=== PATIENT | female | born 1965 | race Caucasian/White ===

== ENCOUNTER → 2017-02-22 | Outpatient (CLI) | payer OTHER | END | disposition home or self-care (01) | LOC: CT 10:52 | DX: J32.0 Chronic maxillary sinusitis (principal); H92.02 Otalgia, left ear; M54.2 Cervicalgia; H57.12 Ocular pain, left eye ==

== ENCOUNTER → 2018-03-02 | Outpatient (CLI) | payer OTHER ==
[~2018-03-02] MED LIST: ADDERALL 20 MG20 MG PO; ASPIR LOW81 MG PO; AVPAK PRIMIDONE50 M1 PO; B12,B-12,B 12500 MC1 PO; BIOTIN2500 MCG PO; CYMBALTA60 MG PO; ESTRADIOL2 MG PO; GAVISCON ES TA1 EACH PO; HYDROXYZINE PAM25 M1 PO; INDOMETHACIN50 MG PO; PLAQUENIL200 MG PO; PROTONIX40 MG PO; SUMATRIPTAN SU100 M1 PO; TEMAZEPAM30 MG PO; ZANTAC 150150 MG PO
== END | disposition home or self-care (01) ==
LOC: MAMMO 10:00
DX: Z12.31 Encounter for screening mammogram for malignant neoplasm of breast (principal)

== ENCOUNTER → 2019-02-21 | Outpatient (CLI) | payer OTHER ==
[2019-02-21 09:30] LABS: HEMATOCRIT 43.3 % (37.0-47.0); HEMOGLOBIN 14.1 g/dl (12.0-16.0); MEAN CELL VOLUME 92.3 fl (81.0-99.0); MEAN CORPUSCULAR HGB 30.1 pg (27.0-31.0); MEAN CORPUSCULAR HGB CONC 32.6 g/dl (33.0-37.0); MEAN PLATELET VOLUME 9.2 fl (9.6-12.3); RED BLOOD COUNT 4.69 10*6/uL (4.10-5.10); RED CELL DISTRI WIDTH 12.5 % (0-14.5); WHITE BLOOD COUNT 4.7 10*3/uL (4.8-10.8)
[2019-02-21 10:10] LABS: ALBUMIN 3.7 gm/dl (3.1-4.5); ALKALINE PHOSPHATASE 77 U/L (45-117); BUN 16 mg/dl (7-24); CHLORIDE 102 mmol/L (98-107); CHOLESTEROL 149 mg/dL (<200); CPK 86 U/L (26-192); HDL CHOLESTEROL 67 mg/dl (40-60); LDL CHOLESTEROL 57 mg/dL (9-159); POTASSIUM 4.3 mmol/L (3.5-5.1); SGOT/AST 13 IU/L (3-35); SGPT/ALT 25 U/L (12-78); SODIUM 139 mmol/L (136-145); TOTAL PROTEIN 6.9 gm/dL (6.4-8.2); TRIGLYCERIDES 127 mg/dl (<150); VLDL CHOLESTEROL 25 mg/dL (6-40)
[2019-02-22 06:05] LABS: FOLLICLE STIMULATING HORMONE 25.9 mIU/mL (.); LUTEINIZING HORMONE 004283 27.3 mIU/mL (.)
[2019-02-22 08:08] LABS: HEPATITIS B SURFACE AG Negative (Negative); HEPATITIS C VIRUS ANTIBODY <0.1 s/co (0.0-0.9); RHEUMATOID ARTHRITIS FACTOR <10.0 IU/mL (0.0-13.9)
[2019-02-23 21:08] LABS: TESTOSTERONE FREE, (DIRECT) 3.1 pg/mL (0.0-4.2)
[2019-02-23 22:03] LABS: CCP ANTIBODIES IGG/IGA 4 units (0-19)
== END | disposition home or self-care (01) ==
LOC: LAB 08:57
PROVIDERS: Family Medicine
DX: E55.9 Vitamin D deficiency, unspecified (principal); M79.10 Myalgia, unspecified site; M25.50 Pain in unspecified joint; F90.9 Attention-deficit hyperactivity disorder, unspecified type; F41.9 Anxiety disorder, unspecified; E28.2 Polycystic ovarian syndrome; Z78.0 Asymptomatic menopausal state

== ENCOUNTER → 2020-12-06 | Outpatient (CLI) | payer OTHER ==
[2020-12-06 11:30] LABS: ALBUMIN 3.8 gm/dl (3.1-4.5); BILIRUBIN, DIRECT 0.2 mg/dL (0.0-0.2); CREATININE 1.26 mg/dL (0.55-1.02); FREE T4 0.95 ng/dl (0.76-1.46); POTASSIUM 3.9 mmol/L (3.5-5.1); TOTAL PROTEIN 7.4 gm/dL (6.4-8.2)
[2020-12-06 11:35] LABS: THYROID STIM HORMONE (HS) 5.5 uIU/ml (0.358-4.75)
[2020-12-07 05:06] LABS: THYROID PEROXIDASE (TPO) AB <9 IU/mL (0-34)
== END | disposition home or self-care (01) ==
LOC: LAB 10:20
PROVIDERS: ATTEND Internal Medicine
DX: E03.9 Hypothyroidism, unspecified (principal); E34.9 Endocrine disorder, unspecified; L65.9 Nonscarring hair loss, unspecified; E55.9 Vitamin D deficiency, unspecified; E66.9 Obesity, unspecified

== ENCOUNTER → 2021-03-08 | Outpatient (CLI) | payer OTHER ==
[2021-03-08 11:45] LABS: ALBUMIN 3.7 gm/dl (3.1-4.5); ALKALINE PHOSPHATASE 110 U/L (45-117); BUN 25 mg/dl (7-24); CHLORIDE 109 mmol/L (98-107); CHOLESTEROL 170 mg/dL (<200); CREATININE 1.14 mg/dL (0.55-1.02); LDL CHOLESTEROL 52 mg/dL (9-159); SGOT/AST 12 IU/L (3-35); SGPT/ALT 33 U/L (12-78); SODIUM 140 mmol/L (136-145); TOTAL PROTEIN 6.9 gm/dL (6.4-8.2); TRIGLYCERIDES 370 mg/dl (<150)
[2021-03-08 11:47] LABS: FREE T4 1.08 ng/dl (0.76-1.46)
[2021-03-09 10:06] LABS: THYROID PEROXIDASE (TPO) AB <8 IU/mL (0-34)
[2021-03-10 15:06] LABS: THYROGLOBULIN ANTIBODY <1.0 IU/mL (0.0-0.9)
== END | disposition home or self-care (01) ==
LOC: LAB 11:03
PROVIDERS: ATTEND Internal Medicine
DX: E55.9 Vitamin D deficiency, unspecified (principal); E03.9 Hypothyroidism, unspecified; E34.9 Endocrine disorder, unspecified; Z12.31 Encounter for screening mammogram for malignant neoplasm of breast

== ENCOUNTER → 2021-09-04 | Outpatient (CLI) | payer OTHER | END | disposition home or self-care (01) | LOC: LAB 08:29 | PROVIDERS: ATTEND Internal Medicine | DX: E34.9 Endocrine disorder, unspecified (principal) ==

== ENCOUNTER → 2021-11-04 | Outpatient (CLI) | payer OTHER ==
[2021-11-04 10:18] LABS: BUN 25 mg/dl (7-24); CHLORIDE 110 mmol/L (98-107); CREATININE 1.08 mg/dL (0.55-1.02); FREE T4 1.21 ng/dl (0.76-1.46); POTASSIUM 3.7 mmol/L (3.5-5.1); SODIUM 141 mmol/L (136-145)
[2021-11-05 05:05] LABS: LUTEINIZING HORMONE 49.8 mIU/mL (.); PROGESTERONE 0.7 ng/mL (.)
== END | disposition home or self-care (01) ==
LOC: LAB 08:47
PROVIDERS: ATTEND Internal Medicine
DX: E34.9 Endocrine disorder, unspecified (principal); E04.9 Nontoxic goiter, unspecified; E55.9 Vitamin D deficiency, unspecified; R73.01 Impaired fasting glucose; E03.9 Hypothyroidism, unspecified

== ENCOUNTER → 2022-08-31 | Outpatient (CLI) | payer OTHER ==
[2022-08-31 16:32] LABS: FREE T4 1.8 ng/dl (0.89-1.76); POTASSIUM 4.2 mmol/L (3.4-5.1); THYROID STIM HORMONE (HS) 0.04 uIU/ml (0.550-4.780)
[2022-08-31 16:35] LABS: VITAMIN D, 25-HYDROXY 58.7 ng/mL (30-100)
== END | disposition home or self-care (01) ==
LOC: LAB 15:31
PROVIDERS: ATTEND Internal Medicine
DX: E55.9 Vitamin D deficiency, unspecified (principal); E03.9 Hypothyroidism, unspecified; R73.01 Impaired fasting glucose; R53.83 Other fatigue; L65.9 Nonscarring hair loss, unspecified

== ENCOUNTER → 2022-12-10 | Outpatient (CLI) | payer OTHER ==
[2022-12-10 09:29] LABS: FREE T4 1.22 ng/dl (0.89-1.76); POTASSIUM 3.4 mmol/L (3.4-5.1); THYROID STIM HORMONE (HS) 0.824 uIU/ml (0.550-4.780)
== END | disposition home or self-care (01) ==
LOC: LAB 08:07
PROVIDERS: ATTEND Internal Medicine
DX: E03.9 Hypothyroidism, unspecified (principal); E55.9 Vitamin D deficiency, unspecified; L65.9 Nonscarring hair loss, unspecified; R73.01 Impaired fasting glucose

== ENCOUNTER → 2022-12-16 | Outpatient (CLI) | payer OTHER | END | disposition home or self-care (01) | LOC: CARD 07:30 | PROVIDERS: ATTEND Internal Medicine Cardiovascular Disease | DX: R06.02 Shortness of breath (principal); R06.09 Other forms of dyspnea ==

== ENCOUNTER → 2023-01-06 | Outpatient (CLI) | payer OTHER | END | disposition home or self-care (01) | LOC: CARD 01:04 | PROVIDERS: ATTEND Internal Medicine Cardiovascular Disease | DX: I20.8 Other forms of angina pectoris (principal); R06.02 Shortness of breath; R06.09 Other forms of dyspnea ==

== ENCOUNTER → 2023-05-21 | Outpatient (CLI) | payer OTHER ==
[2023-05-21 08:43] LABS: VITAMIN D, 25-HYDROXY 56.1 ng/mL (30-100)
[2023-05-21 08:44] LABS: BUN 14 mg/dl (9-23); CHLORIDE 109 mmol/L (98-107); FREE T4 1.12 ng/dl (0.89-1.76); POTASSIUM 3.8 mmol/L (3.4-5.1)
[2023-05-28 18:06] LABS: METANEPHRINE, PLASMA 11.9 pg/mL (0.0-88.0); NORMETANEPHRINE, PLASMA 78.7 pg/mL (0.0-244.0)
== END | disposition home or self-care (01) ==
LOC: LAB 07:22
PROVIDERS: ATTEND Internal Medicine
DX: E55.9 Vitamin D deficiency, unspecified (principal); E03.9 Hypothyroidism, unspecified; R00.9 Unspecified abnormalities of heart beat; L65.9 Nonscarring hair loss, unspecified

== ENCOUNTER → 2024-05-18 | Outpatient (CLI) | payer OTHER ==
[2024-05-18 11:32] LABS: BUN 19 mg/dl (9-23); CHLORIDE 105 mmol/L (98-107); FREE T4 2.06 ng/dl (0.89-1.76); POTASSIUM 4.2 mmol/L (3.4-5.1)
== END | disposition home or self-care (01) ==
LOC: LAB 10:26
PROVIDERS: ATTEND Internal Medicine
DX: E55.9 Vitamin D deficiency, unspecified (principal); L85.9 Epidermal thickening, unspecified; E03.9 Hypothyroidism, unspecified

== ENCOUNTER → 2024-12-30 | Outpatient (CLI) | payer MEDICAID ==
[2024-12-30 08:46] LABS: BUN 19 mg/dl (9-23); CHLORIDE 107 mmol/L (98-107); FREE T4 1.13 ng/dl (0.89-1.76); POTASSIUM 3.8 mmol/L (3.4-5.1)
== END | disposition home or self-care (01) ==
LOC: LAB 12-29 13:05
PROVIDERS: ATTEND Internal Medicine
DX: E03.9 Hypothyroidism, unspecified (principal); L65.9 Nonscarring hair loss, unspecified; E55.9 Vitamin D deficiency, unspecified; R73.01 Impaired fasting glucose; I95.9 Hypotension, unspecified

== ENCOUNTER → 2025-05-24 | Outpatient (CLI) | payer MEDICAID ==
[2025-05-24 12:35] LABS: BUN 18 mg/dl (9-23); FREE T4 1.70 ng/dl (0.89-1.76); LDL CHOLESTEROL 101 mg/dL (9-159); SGPT/ALT 9 U/L (5-49)
[2025-05-24 12:36] LABS: VITAMIN D, 25-HYDROXY 67.7 ng/mL (30-100)
== END | disposition home or self-care (01) ==
LOC: LAB 11:27
PROVIDERS: ATTEND Internal Medicine
DX: E03.9 Hypothyroidism, unspecified (principal); L65.9 Nonscarring hair loss, unspecified; R73.01 Impaired fasting glucose; E55.9 Vitamin D deficiency, unspecified; E78.5 Hyperlipidemia, unspecified; N95.1 Menopausal and female climacteric states